=== PATIENT | female | born 1960 | race Caucasian/White ===

== ENCOUNTER → 2016-06-17 | Outpatient (CLI) | payer BC ==
[~2016-06-17] MED LIST: ACYC-108 PO; ALPR0.25 PO; ASCO500T20 PO; CALC-80 PO; CETI10TA17 PO; CPR500T PO; E400C PO; FESO4TAB2 PO; FIBER PILL PO; GFN600TCR PO; HYDR1TAB75 PO; KRIL1CAP20 PO; LEVO137T2 PO; LORA10TA7 PO; LVT.15T PO; MAGN-47 PO; MULT-608 PO; PHEN37.555 PO; TML5OP2.5 OU; TROS60CA PO
--- NOTE | 2016-06-18 10:23 | Diagnostic Imaging Report ---
Bilateral screening mammogram The current study was also evaluated with a Computer Aided Detection (CAD) system. Indication: Screening. No current complaints stated on the questionnaire. COMPARISON: 01/19/14 FINDINGS: The breasts are composed of scattered fibroglandular densities. There are occasional benign appearing calcifications. Allowing for technique and positional differences, no suspicious change is seen. IMPRESSION: No significant change. ACR BI-RADS Category 2: Benign findings. Result letter will be mailed to the patient. Note: At least 10% of breast cancer is not imaged by mammography. Dictated by: Dictated on workstation # [id number]
== END ==
LOC: RAD 11:08
PROVIDERS: ATTEND Obstetrics & Gynecology
DX: Z12.31 Encounter for screening mammogram for malignant neoplasm of breast (principal)
CPT/HCPCS: 77067

== ENCOUNTER → 2018-07-31 | Outpatient (CLI) | payer BC, OTHER ==
[~2018-07-31] VITALS: Ht 167.6 cm; Wt 77.1 kg
[~2018-07-31] MED LIST changes: +CATHETER FLUSH 10 ML SYR IV PRN
[2018-07-31 08:19] VITALS: BP 121/83
[2018-07-31 08:24] VITALS: BP 156/88
[2018-07-31 08:25] VITALS: BP 156/88
--- NOTE | 2018-07-31 11:53 | Diagnostic Imaging Report ---
INDICATION: Chest pain. TIME OF EXAM: 9:00 a.m. Comparison is made with prior chest from 08/04/2012. FINDINGS: The heart size is normal. The pulmonary vascularity is unremarkable. The lungs are clear. No infiltrate, effusion or pneumothorax is detected. IMPRESSION: No acute cardiopulmonary process is detected. Dictated by: Dictated on workstation # [id number]
--- NOTE | 2018-07-31 22:02 | STRESS TEST ---
DATE OF SERVICE: NUCLEAR MYOVIEW REPORT REFERRING PHYSICIAN: Neto Méndez DO SUMMARY: The patient was injected with 10.87 mCi of technetium-99 Myoview and the resting images were obtained. Then, the patient received a stress dose of 31.0 mCi of technetium-99 Myoview. The test was supervised by Dr. Méndez. The resting and stressed images were reviewed and compared in the short axis, horizontal long axis, and vertical long axis views. Review of the images showed good radiotracer uptake with no significant ischemia or infarction on SPECT images. SSS is 2, SDS 2, TID value 1.09. On the gated images, the left ventricle appeared to be normal size with normal contractility. Calculated ejection fraction 80%. CONCLUSION: 1. Typical female pattern with no significant ischemia or infarction on SPECT images. 2. Normal left ventricular size with normal contractility. Calculated ejection fraction 80%. Job ID: [id number] DocumentID: [id number] Dictated Date: 07/31/2018 16:22:04 Card Feeder Date: 07/31/2018 22:01:30 Dictated By: NOÉ FLORENTINO MD
== END ==
LOC: CARD 06:33
PROVIDERS: ATTEND Internal Medicine
DX: R07.89 Other chest pain (principal)
CPT/HCPCS: 71046; 78452; 93017

== ENCOUNTER 2020-11-24 10:23 | Outpatient (CLI) | payer BC, OTHER ==
[~2020-11-24] VITALS: Ht 167.7 cm; Wt 90.9 kg
[2020-11-24 10:20] VITALS: BP 109/63
[~2020-11-24 10:23] MED LIST changes: -CATHETER FLUSH 10 ML SYR IV PRN
[2020-11-24 10:30] VITALS: BP 109/63
[2020-11-24] MEDS ORDERED: EPINEPHrine INJECTION 1 MG/ML AMP IM PRN (11:00)
[2020-11-24] MEDS ORDERED: ONDANSETRON 4 MG/2 ML (SDV) Z0FRAN IV PRN (11:00)
[2020-11-24] MEDS ORDERED: ACETAMINOPHEN 500 MG TAB (TYLENOL) PO PRN (11:00)
[2020-11-24] MEDS ORDERED: CASIRIVIMAB/IMDEVIMAB 1,200 MG in NS (IVPB) 250 ML IV ONE (11:00)
[2020-11-24] MEDS ORDERED: diphenhydrAMINE 50 MG/ML INJ (BENADRYL) IV PRN (11:00)
[2020-11-24 12:00] VITALS: BP 91/65
== END 2020-11-24 12:30 ==
LOC: INFUSION 10:23
PROVIDERS: ATTEND Nurse Practitioner
DX: Z23 Encounter for immunization (principal); U07.1 COVID-19